=== PATIENT | female | born 2000 | race Caucasian/White ===

== ENCOUNTER 2020-04-15 10:22 | Emergency (ER) | payer OTHER ==
[~2020-04-15] VITALS: Ht 172.7 cm; Wt 101.5 kg
[2020-04-15 10:38] VITALS: BP 112/77
== END 2020-04-15 12:03 | disposition home or self-care (01) ==
LOC: ED 11:36
DX: M25.561 Pain in right knee (principal)
CPT/HCPCS: 99283